=== PATIENT | male | born 1960 | race African-American/Black ===

== ENCOUNTER 2017-02-20 20:52 | Emergency (ER) | payer SELFPAY ==
[~2017-02-20] VITALS: Ht 167.6 cm; Wt 71.2 kg
[2017-02-20 21:05] VITALS: BP 135/76
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
[2017-02-20] MEDS ORDERED: TRAMADOL HCL50 MG ORAL (22:12)
[2017-02-20] MEDS ORDERED: IBUPROFEN600 MG ORAL (22:12)
[2017-02-20 22:20] VITALS: BP 130/75
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
== END 2017-02-20 22:45 | disposition home or self-care (01) ==
LOC: EMR 22:43
DX: S16.1XXA Strain of muscle, fascia and tendon at neck level, initial encounter (principal); V43.52XA Car driver injured in collision with other type car in traffic accident, initial encounter; Y93.9 Activity, unspecified; Y92.410 Unspecified street and highway as the place of occurrence of the external cause; S39.012A Strain of muscle, fascia and tendon of lower back, initial encounter; S60.229A Contusion of unspecified hand, initial encounter; Z96.641 Presence of right artificial hip joint; M47.892 Other spondylosis, cervical region; M47.896 Other spondylosis, lumbar region; M25.551 Pain in right hip; M48.00 Spinal stenosis, site unspecified
CPT/HCPCS: 72020; 72040; 99284